=== PATIENT | female | born 1955 | race Caucasian/White ===

== ENCOUNTER 2016-08-29 13:56 | Emergency (ER) | payer OTHER, MEDICAID ==
--- NOTE | 2016-08-29 15:11 | EDPHY ---
H & P Smoking Status: Never smoked Time Seen by Provider: 08/29/16 14:50 HPI/ROS: CHIEF COMPLAINT: Mechanical fall, multiple abrasions and right wrist pain HISTORY OF PRESENT ILLNESS: 61-year-old female presents to the emergency department after having a mechanical fall in the parking lot of her school just prior to arrival. The patient states that she was running after a paper that was blowing in the when she lost her footing and tripped and fell hitting her face, both wrists and her right knee. She did not lose consciousness. She is complaining of jaw pain as well as right hand wrist pain. She is right-hand dominant. Denies symptoms in the left upper extremity. Denies neck or back pain. Denies abdominal pain. Denies chest pain or difficulty breathing. Denies any presyncopal symptoms prior to her fall. She believes her tetanus shot is current. REVIEW OF SYSTEMS: Constitutional: No fever, no chills. Eyes: No double or blurry vision. ENT: No sore throat. Respiratory: No cough, no shortness of breath. Cardiac: No chest pain. Gastrointestinal: No abdominal pain, vomiting or diarrhea. Genitourinary: No dysuria. Musculoskeletal: No neck or back pain. Skin: Abrasions. No rashes. Neurological: No headache. (Ashlie Estrella) Past Medical/Surgical History: Gastric bypass (Ashlie Estrella) Social History: Lives in [place], currently in [employer] in [place] (Ashlie Estrella) Physical Exam: General Appearance: Alert, tearful. Facial abrasions. Eyes: Pupils equal and round. Extraocular motions are all intact. ENT: Mouth: Mucous membranes moist. Diffusely tender to palpate along the mandible from the left and the right side. No palpable crepitus. No malocclusion. No injury to buccal or gingival mucosa. Respiratory: No wheezing, rhonchi, or rales, lungs are clear to auscultation. Cardiovascular: Regular rate and rhythm. Gastrointestinal: Abdomen is soft and nontender, no masses, no rebound or guarding, bowel sounds normal. Neurological: Alert and oriented x 3, cranial nerves II through XII grossly intact Skin: Upper lip laceration. Does not cross vermilion border. Superficial abrasions volar aspect of both wrists. Superficial anterior chin abrasion. Superficial abrasion with no bleeding noted to the anterior aspect of the right knee. Warm and dry, no rashes. Musculoskeletal: Nontender to palpate along the cervical, thoracic or lumbar spine. Neck is supple. Extremities: Swelling and pain with palpation over the right 1st metacarpal. Limited mobility of the right thumb secondary to pain. Diffusely tender to palpate the right wrist. Limited supination secondary to pain. Full range of motion of the left upper extremity and lower extremities bilaterally. Psychiatric: Patient is oriented X 3, there is no agitation. (Ashlie Estrella) Constitutional: Initial Vital Signs Temperature (C) 36.7 C 08/29/16 14:00 Heart Rate 95 08/29/16 14:00 Respiratory Rate 18 08/29/16 14:00 Blood Pressure 157/93 H 08/29/16 14:00 O2 Sat (%) 100 08/29/16 14:00 O2 Delivery Mode Room Air Allergies/Adverse Reactions: codeine Allergy (Verified 08/29/16 13:58) NSAIDS (Non-Steroidal Anti-Inflamma Allergy (Verified 08/29/16 13:59) Sulfa (Sulfonamide Antibiotics) Allergy (Verified 08/29/16 14:21) Home Medications: Medication Instructions Recorded Januvia 100 MG (*) 08/29/16 Metformin HCl 08/29/16 Oxycodone HCl 08/29/16 oxyCODONE IR [Oxycodone Ir (*)] 5 mg PO Q6 #11 tab 08/29/16 traMADol 08/29/16 Medical Decision Making - Diagnostics Imaging: I viewed and interpreted images myself - Diagnostics Imaging Results: The images were reviewed by myself the PAC system. (Ashlie Estrella) Procedures: Laceration repair. Verbal consent was obtained from the patient. The 1.5 cm laceration on the upper lip was anesthetized using 1% lidocaine with epinephrine. The wound was irrigated with saline, draped and explored to its base with a gloved finger. There were no deep structures involved. The wound was repaired with 6 0 Prolene, 5 sutures. The wound repair was simple. The procedure was performed by myself. Velcro thumb spica splint applied to the right wrist and examined post application in good placement with normal [employer] [employer]. (Ashlie Estrella) ED Course/Re-evaluation: 61-year-old female presents to the emergency department after she had a mechanical fall. Right wrist and hand x-rays were obtained which revealed no fractures. Her break ins were cleansed and dressed and she was placed in a splint. She sustained an upper lip laceration which was repaired, see procedure note. CT imaging of the facial bones including mandible reveal no fractures. Patient was given wound care precautions. She will follow up with orthopedic surgeon next week to recheck. (Ashlie Estrella) Differential Diagnosis: Head injury including but not limited to concussion, skull fracture, intraparenchymal contusion, subarachnoid, subdural and epidural hematoma. Wrist injury including but not limited to fracture, dislocation, contusion, sprain (Ashlie Estrella) Other Provider: The patient was evaluated and managed by the physician account management assistant. I have reviewed this chart and I agree with the findings and plan of care as documented , as indicated by my signature. I am the secondary supervising physician. ( Trinity Craig) - Data Points Medications Given: Discontinued Medications Oxycodone HCl (Oxycodone Ir) 10 mg PO EDNOW ONE Stop: 08/29/16 15:55 Last Admin: 08/29/16 16:03 Dose: 10 mg Departure - Departure Disposition: Home, Routine, Self-Care Clinical Impression: Lip laceration, Abrasion, multiple sites, Contusion of right hand, Right wrist sprain Condition: Good Instructions: Care For Your Stitches (ED), Laceration (ED), Head Injury (ED), Contusion in Adults (ED), Abrasion (ED), Wrist Sprain (ED) Additional Instructions: Splint for comfort and support. Follow up with orthopedic surgery in 1 week to recheck. Tylenol as needed for severe pain. Wound Care Follow-Up: Removal of sutures in 5 days. Suture removal is complimentary in uncomplicated cases. Infection or abnormal findings would require reevaluation by the MD. In that case, you may be billed. Referrals: Juan Marina MD [Medical Doctor] - 5-7 days, call for appt. (Orthopedic surgeon on-call) Prescriptions: oxyCODONE IR [Oxycodone Ir (*)] 5 mg PO Q6 #11 tab
[2016-08-29] MEDS ORDERED: oxyCODONE IR 5 MG TAB PO ONE (15:54)
[2016-09-04 19:44] VITALS: BP 143/91; PULSE 77; RESP 16; TEMP 98.1; O2SAT 96
== END 2016-08-29 17:58 | disposition home or self-care (01) ==
PROC: 0CQ0XZZ Repair Upper Lip, External Approach (ICD-10-PCS; principal; 2016-08-29)
DX: S63.501A Unspecified sprain of right wrist, initial encounter (principal); S01.511A Laceration without foreign body of lip, initial encounter; S60.221A Contusion of right hand, initial encounter; S60.811A Abrasion of right wrist, initial encounter; S60.812A Abrasion of left wrist, initial encounter; S80.211A Abrasion, right knee, initial encounter; W01.198A Fall on same level from slipping, tripping and stumbling with subsequent striking against other object, initial encounter; Y92.219 Unspecified school as the place of occurrence of the external cause; Y99.0 Civilian activity done for income or pay; Y93.02 Activity, running
CPT/HCPCS: L3807